=== PATIENT | female | born 1985 | race Caucasian/White ===

== ENCOUNTER 2016-08-04 23:39 | Emergency (ER) | payer OTHER ==
[~2016-08-04] VITALS: Ht 172.7 cm; Wt 74.1 kg
[~2016-08-04 23:39] MED LIST: CARAFATE 1GM1 G PO; NOVA RING; PROTONIX20 MG PO
[2016-08-04 23:44] VITALS: TEMP 98.9
[2016-08-05] MEDS ORDERED: ZOFRAN8 MG PO (00:09)
[2016-08-05] MEDS ORDERED: ULTRAM 50MG TAB50 MG PO (00:09)
[2016-08-05 00:25] LABS: BASO % 0.3 % (0.0-2.0); EOS # 0.2 (0.0-0.7); EOS % 2.4 % (0-4.0); GRAN % 65.4 % (42.2-75.2); HEMOGLOBIN 12.7 g/dl (12.5-16.0); LYMPH # 2.1 (1.2-3.4); LYMPH % 23.3 % (20.0-51.0); MEAN CELL VOLUME 91 fl (80.0-100.0); MEAN CORPUSCULAR HEMOGLOBIN 34 pg (27.0-31.0); MEAN CORPUSCULAR HGB CONC 37 g/dl (33.0-37.0); MEAN PLATELET VOLUME 9.7 fl (7.4-10.4); MONO # 0.8 (0.1-0.6); MONO % 8.3 % (1.7-9.3); PLATELET COUNT 165 K/mm3 (130-400); RED BLOOD COUNT 3.79 M/mm3 (4.10-5.30); REDCELL DISTRIBUTION WIDTH-CV 12.7 % (11.5-14.5); WHITE BLOOD COUNT 9.2 K/mm3 (4.8-10.8)
[2016-08-05 00:29] LABS: HEMATOCRIT 34.3 % (37.0-47.0)
[2016-08-05 00:35] LABS: ADJUSTED CALCIUM 8.7 mg/dL (8.4-10.2); ALBUMIN 3.7 gm/dL (3.5-5.0); BILIRUBIN,TOTAL 0.8 mg/dL (0.0-1.0); CALCIUM 8.5 mg/dL (8.4-10.2); CREATININE, serum 0.66 mg/dL (0.52-1.25); POTASSIUM 3.5 mmol/L (3.4-5.0); TOTAL PROTEIN 6.8 gm/dL (6.4-8.2)
[2016-08-05 00:57] LABS: PH 7 (5-8); SQUAMOUS EPITHELIAL 0-2 /hpf; URINE APPEARANCE Clear; URINE BACTERIA None Seen /hpf; URINE BILIRUBIN Negative (NEGATIVE); URINE BLOOD 2+ (NEGATIVE); URINE COLOR Straw; URINE GLUCOSE Negative (NEGATIVE); URINE KETONE Negative (NEGATIVE); URINE UROBILINOGEN Negative (NEGATIVE); URINE WBC 0-2 /hpf
[2016-08-05 01:34] VITALS: BP 116/84; PULSE 60
== END 2016-08-05 01:34 | disposition home or self-care (01) ==
LOC: COL.ER 23:39
PROVIDERS: Emergency Medicine
DX: R10.13 Epigastric pain (principal); R10.31 Right lower quadrant pain; R10.32 Left lower quadrant pain; R63.0 Anorexia; R11.0 Nausea; J32.9 Chronic sinusitis, unspecified; K21.9 Gastro-esophageal reflux disease without esophagitis
CPT/HCPCS: J1170; J1885; J2405; J7030

== ENCOUNTER 2018-12-08 10:15 | Emergency (ER) | payer OTHER ==
[~2018-12-08 10:15] MED LIST changes: +ULTRAM 50MG TAB50 MG PO; +ZOFRAN8 MG PO
[2018-12-08] MEDS ORDERED: PEPCID 20MG TAB20 MG PO (11:05)
[2018-12-08] MEDS ORDERED: PREDNISONE20 MG PO (11:05)
[2018-12-08 13:09] VITALS: BP 108/77; PULSE 65; TEMP 97.8
== END 2018-12-08 13:24 | disposition home or self-care (01) ==
LOC: COL.ER 10:15
DX: T36.0X5A Adverse effect of penicillins, initial encounter (principal); R06.00 Dyspnea, unspecified
CPT/HCPCS: J1200; J2930; J7030